=== PATIENT | male | born 1955 | race Caucasian/White ===

== ENCOUNTER 2016-10-25 14:33 | Emergency (ER) | payer BC, OTHER ==
[2016-10-25 14:51] VITALS: BP 134/91
[2016-10-25] MEDS ORDERED: predniSONE TAB* 20 MG PO ONE (15:27)
[2016-10-25] MEDS ORDERED: Albuterol HFA INHALER* 8 gm MDI INH ONE (15:27)
--- NOTE | 2016-10-25 15:39 | UC ---
Respiratory Complaint HPI - HPI Summary HPI Summary: 61 yo male with cough x weeks worse for days chest feels tight no f/c no CP of SOB states he gets this almost yearly and it gets better with a ZPAK no n/v/d - History of Current Complaint Chief Complaint: UCRespiratory Stated Complaint: CHEST CONGESTION Time Seen by Provider: 10/25/16 15:21 Hx Obtained From: Patient Onset/Duration: Gradual Onset, Lasting Weeks Timing: Constant Severity Initially: Mild Severity Currently: Moderate Pain Intensity: 1 Pain Scale Used: 0-10 Numeric Character: Cough: Nonproductive Aggravating Factors: Deep Breaths Alleviating Factors: Nothing Associated Signs And Symptoms: Positive: Wheezing Related History: Similar Episode/Dx as: - bronchitis - Allergies/Home Medications Allergies/Adverse Reactions: Allergies Allergy/AdvReac Type Severity Reaction Status Date / Time No Known Allergies Allergy Verified 10/25/16 14:43 Home Medications: Home Medications Omeprazole CAP* [Prilosec CAP* 20 MG] 1 cap DAILY 10/25/16 [History Confirmed ] Simvastatin TAB(NF) [Zocor 10 MG (NF)] 1 tab DAILY 10/25/16 [History Confirmed 10/25/16] PMH/Surg Hx/FS Hx/Imm Hx Previously Healthy: Yes Endocrine History: Dyslipidemia Respiratory History: Bronchitis - Surgical History Surgical History: Yes Surgery Procedure, Year, and Place: Detached retina. Cataracts - Family History Known Family History: Positive: Hypertension Negative: Respiratory Disease - Social History Alcohol Use: Occasionally Alcohol Amount: once a week Substance Use Type: None Smoking Status (MU): Never Smoked Tobacco - Immunization History Most Recent Influenza Vaccination: 2016 Most Recent Tetanus Shot: UTD Most Recent Pneumonia Vaccination: Unknown Review of Systems Constitutional: Negative Skin: Negative Eyes: Negative ENT: Negative Respiratory: Cough Cardiovascular: Negative Gastrointestinal: Negative Genitourinary: Negative Motor: Negative Neurovascular: Negative Musculoskeletal: Negative Neurological: Negative Psychological: Negative All Other Systems Reviewed And Are Negative: Yes Physical Exam Triage Information Reviewed: Yes Appearance: Well-Appearing, No Pain Distress, Well-Nourished Vital Signs: Initial Vital Signs Temp 98 F 10/25/16 14:45 Pulse 67 10/25/16 14:45 Resp 16 10/25/16 14:45 BP 134/91 10/25/16 14:45 Pulse Ox 98 10/25/16 14:45 Vital Signs Reviewed: Yes Eyes: Positive: Conjunctiva Clear ENT: Positive: Normal ENT inspection, Hearing grossly normal, Pharynx normal. Negative: Nasal congestion, Nasal drainage, Trismus, Muffled/hoarse voice Neck: Positive: Supple, Nontender, No Lymphadenopathy Respiratory: Positive: Normal breath sounds, No respiratory distress, Wheezing - with forced expiration Cardiovascular: Positive: RRR, No Murmur. Negative: Tachycardia, Bradycardia Musculoskeletal: Positive: ROM Intact, No Edema Neurological Exam: Normal Neurological: Positive: Alert Psychological Exam: Normal Skin Exam: Normal UC Diagnostic Evaluation - Laboratory O2 Sat by Pulse Oximetry: 98 - normal/not hypoxic Respiratory Course/Dx - Course Course Of Treatment: pt has appt for in one week with his PMD. will have BP rechecked - Differential Dx/Diagnosis Provider Diagnoses: acute bronchitis with bronchospasm. elevated blood pressure Discharge - Discharge Plan Condition: Stable Disposition: HOME Prescriptions: Azithromycin TAB* [Zithromax TAB*] 250 mg PO DAILY #6 tab Prednisone [Deltasone] 40 mg PO DAILY #8 tab Patient Education Materials: Acute Bronchitis (ED) Additional Instructions: 2 puffs albuterol 4x day for 5-[address] Strange next week as planned recheck for new or worsening symptoms
== END 2016-10-25 15:54 | disposition home or self-care (01) ==
LOC: UCCORT 14:33
DX: J20.9 Acute bronchitis, unspecified (principal); R03.0 Elevated blood-pressure reading, without diagnosis of hypertension; E78.5 Hyperlipidemia, unspecified
CPT/HCPCS: 99203; A9270-GY; G0463; J7512